=== PATIENT | male | born 1975 | race Caucasian/White ===

== ENCOUNTER 2021-10-19 06:54 | Inpatient (IN) | payer OTHER ==
[2021-10-06 14:16] VITALS: BMI 50.8
[~2021-10-19 06:54] MED LIST: VANCOMYCIN 1,000 MG VIAL (RESTRICTED TO ID ONLY) IVPB ONE
[2021-10-19] MEDS ORDERED: CELECOXIB 200 MG CAPSULE PO ONE (07:12)
[2021-10-19] MEDS ORDERED: DEXMEDETOMIDINE HCL 200 MCG/2 ML IVPB ONE (07:40)
[2021-10-19] MEDS ORDERED: MIDAZOLAM HCL 2 MG/2 ML SINGLE DOSE VIAL ONE ×6 (07:40→12:35)
[2021-10-19] MEDS ORDERED: BUPIVACAINE HCL/PF 0.5% (5MG/ML) 10 ML VIAL ONE (07:41)
[2021-10-19] MEDS ORDERED: ACETAMINOPHEN INJECTION 100 ML IVPB ONE ×2 (07:41→14:09)
[2021-10-19] MEDS ORDERED: BUPIVACAINE HCL/PF 0.5% (5 MG/ML) 30 ML VIAL IJ ONE (07:41)
[2021-10-19] MEDS ORDERED: PROPOFOL 20 ML ONE ×3 (07:59)
[2021-10-19] MEDS ORDERED: ceFAZolin SODIUM 1 GM VIAL ONE ×5 (07:59→23:39)
[2021-10-19] MEDS ORDERED: ONDANSETRON 4 MG/2 ML VIAL ONE (07:59)
[2021-10-19] MEDS ORDERED: LIDOCAINE HCL/PF 2% SDV 5ML VIAL ONE (07:59)
[2021-10-19] MEDS ORDERED: SUCCINYLCHOLINE CHLORIDE 200 MG/10 ML SYRINGE ONE (07:59)
[2021-10-19] MEDS ORDERED: VANCOMYCIN 1,000 MG VIAL (RESTRICTED TO ID ONLY) ONE (08:20)
[2021-10-19] MEDS ORDERED: CEFAZOLIN 3 GM in DEXTROSE 5%-WATER - 100 ML IVPB ONE (09:30)
[2021-10-19] MEDS ORDERED: KETAMINE HCL 200 MG/20 ML VIAL ONE (09:35)
[2021-10-19] MEDS ORDERED: TRANEXAMIC ACID 1000 MG/10 ML VIAL IVPUSH ONE (10:00)
[2021-10-19] MEDS ORDERED: LACTATED RINGERS SOLUTION 1,000 ML IV SCH ×2 (10:15→12:00)
[2021-10-19] MEDS ORDERED: ONDANSETRON 4 MG/2 ML VIAL IVPUSH PRN ×2 (10:15→11:58)
[2021-10-19] MEDS ORDERED: MAG HYDROX/AL HYDROX/SIMETH 30 ML UNIT-DOSE CUP PO PRN (10:15)
[2021-10-19] MEDS ORDERED: PHENYLEPHRINE HCL 10 MG/1 ML SINGLE DOSE VIAL ONE (11:40)
[2021-10-19] MEDS ORDERED: oxyCODONE HCL 5 MG TABLET PO PRN (11:58)
[2021-10-19] MEDS ORDERED: VANCOMYCIN 1,000 MG VIAL (RESTRICTED TO ID ONLY) IVPB ONE (12:33)
[2021-10-19] MEDS: oxyCODONE HCL 5 MG TABLET PO PRN ×2 (16:31→19:59)
[2021-10-19] MEDS ORDERED: DEXTROSE 5%-WATER - 100 ML IVPB ONE ×3 (17:55→23:39)
[2021-10-19] MEDS: CEFAZOLIN 3 GM in DEXTROSE 5%-WATER - 100 ML IVPB SCH (18:18)
[2021-10-19] MEDS: ACETAMINOPHEN 500 MG TABLET (FP) PO SCH ×2 (18:19→23:35)
[2021-10-19] MEDS: PANTOPRAZOLE 40 MG TABLET PO SCH (21:39)
[2021-10-19] MEDS: oxyCODONE HCL 10 MG SUSTAINED ACTING TABLET PO SCH (21:39)
[2021-10-19] MEDS: CARVEDILOL 12.5 MG TABLET (FP) PO SCH (21:39)
[2021-10-19] MEDS: SENNOSIDES/DOCUSATE COMBO (SENNA PLUS) TABLET (UD) PO SCH (21:39)
[2021-10-19] MEDS ORDERED: PATIENT'S OWN MEDICATION (NON-FORMULARY) (Omeprazole [Omeprazole] 20 MG Tab.Rap.Dr) PO SCH (22:00)
[2021-10-19] MEDS ORDERED: PATIENT'S OWN MEDICATION (NON-FORMULARY) (Lansoprazole [Prevacid] 30 MG Capsule.Dr) PO SCH (22:00)
[2021-10-19] MEDS ORDERED: HYDROmorphone HCl 2 MG/ML VIAL IVPB ONE (23:06)
[2021-10-19] MEDS ORDERED: KETOROLAC TROMETHAMINE 30 MG/1 ML VIAL IVPUSH ONE (23:07)
[2021-10-19] MEDS ORDERED: FAMOTIDINE 20 MG TABLET PO ONE (23:09)
[2021-10-20] MEDS: CEFAZOLIN 3 GM in DEXTROSE 5%-WATER - 100 ML IVPB SCH (01:23)
[2021-10-20] MEDS: ACETAMINOPHEN 500 MG TABLET (FP) PO SCH ×2 (06:01→11:58)
[2021-10-20] MEDS: oxyCODONE HCL 5 MG TABLET PO PRN ×4 (06:02→14:22)
[2021-10-20] MEDS ORDERED: ASPIRIN 325 MG TABLET PO SCH (08:00)
[2021-10-20] MEDS: oxyCODONE HCL 10 MG SUSTAINED ACTING TABLET PO SCH (09:12)
[2021-10-20] MEDS: SENNOSIDES/DOCUSATE COMBO (SENNA PLUS) TABLET (UD) PO SCH (09:13)
[2021-10-20] MEDS: CARVEDILOL 12.5 MG TABLET (FP) PO SCH (09:16)
[2021-10-20] MEDS: PANTOPRAZOLE 40 MG TABLET PO SCH (09:16)
[2021-10-20 09:26] LABS: HEMATOCRIT 44.5 % (35.4-49); HEMOGLOBIN 14.2 GM/dL (11.7-16.9); MEAN CELL VOLUME 78.2 fl (80-96); MEAN PLT VOLUME 8.3 fl (7.5-11.1); PLATELET COUNT 254 10^3/uL (134-434); RBC 5.69 M/mm3 (4.00-5.60); RDW 14.7 % (11.9-15.9); WHITE BLOOD COUNT 10.4 K/mm3 (4.0-10.0)
[2021-10-20] MEDS ORDERED: LOSARTAN POTASSIUM 50 MG TABLET PO SCH (10:00)
[2021-10-20] MEDS ORDERED: FUROSEMIDE 40 MG TABLET (FP) PO SCH (10:00)
[2021-10-20] MEDS ORDERED: MULTIVITAMINS (DAILY MVI) TABLET (FP) PO SCH (10:00)
[2021-10-20 14:03] VITALS: BP 109/57; PULSE 6; TEMP 99.3
== END 2021-10-20 14:58 | disposition home health service (06) | DRG 301 ==
LOC: FM/S 06:54
PROVIDERS: ADMIT Orthopaedic Surgery; ATTEND Orthopaedic Surgery
PROC: 8E0W0CZ Robotic Assisted Procedure of Trunk Region, Open Approach (ICD-10-PCS; 2021-10-19)
PROC: 0SR903A Replacement of Right Hip Joint with Ceramic Synthetic Substitute, Uncemented, Open Approach (ICD-10-PCS; principal; 2021-10-19 11:15)
DX: M16.11 Unilateral primary osteoarthritis, right hip (principal)
CPT/HCPCS: 36415; 73502-TC-RT-FY; 85027; 94760; 97010-GP; 97116-GP; 97163-GP

== ENCOUNTER 2021-11-23 08:51 | Inpatient (IN) | payer OTHER ==
[2021-11-23 09:06] VITALS: BMI 50.1
[2021-11-23] MEDS ORDERED: ACETAMINOPHEN 500 MG TABLET (FP) PO ONE (10:45)
[2021-11-23] MEDS ORDERED: MIDAZOLAM HCL 2 MG/2 ML SINGLE DOSE VIAL ONE ×2 (10:50→12:26)
[2021-11-23] MEDS ORDERED: BUPIVACAINE HCL 50 ML ONE (11:12)
[2021-11-23] MEDS ORDERED: VANCOMYCIN 1,000 MG VIAL (RESTRICTED TO ID ONLY) ONE ×2 (11:41→13:10)
[2021-11-23] MEDS ORDERED: ceFAZolin SODIUM 1 GM VIAL ONE ×3 (11:42→13:10)
[2021-11-23] MEDS ORDERED: TRANEXAMIC ACID 1000 MG/10 ML VIAL ONE (12:45)
[2021-11-23] MEDS ORDERED: PHENYLEPHRINE HCL 10 MG/1 ML SINGLE DOSE VIAL ONE (12:45)
[2021-11-23] MEDS ORDERED: PROPOFOL 20 ML ONE ×2 (12:46→13:02)
[2021-11-23] MEDS ORDERED: DEXAMETHASONE SOD PHOSPHATE 4 MG/1 ML VIAL ONE (13:01)
[2021-11-23] MEDS ORDERED: ONDANSETRON 4 MG/2 ML VIAL ONE (13:01)
[2021-11-23] MEDS ORDERED: oxyCODONE HCL 5 MG TABLET PO PRN ×2 (14:17)
[2021-11-23] MEDS ORDERED: ONDANSETRON 4 MG/2 ML VIAL IVPUSH PRN (14:17)
[2021-11-23] MEDS ORDERED: MAGNESIUM HYDROX 2400MG/30ML ORAL SUSPENSION 30 ML CUP PO PRN (14:18)
[2021-11-23] MEDS ORDERED: LACTATED RINGERS SOLUTION 1,000 ML IV SCH ×2 (14:30)
[2021-11-23] MEDS: KETOROLAC TROMETHAMINE 30 MG/1 ML VIAL IVPUSH SCH ×3 (14:43→20:08)
[2021-11-23] MEDS: ACETAMINOPHEN 1000 MG/100 ML BAG IVPB ONE ×2 (14:44→15:21)
[2021-11-23] MEDS: ACETAMINOPHEN 500 MG TABLET (FP) PO SCH ×2 (15:23→20:09)
[2021-11-23] MEDS ORDERED: oxyCODONE HCL 5 MG TABLET ONE ×2 (16:54)
[2021-11-23] MEDS: oxyCODONE HCL 5 MG TABLET PO PRN ×2 (17:00→21:40)
[2021-11-23] MEDS ORDERED: PIPERACILLIN/TAZOBACTAM 3.375 GM VIAL IVPB ONE ×2 (18:44→19:22)
[2021-11-23] MEDS ORDERED: DEXTROSE 5%-WATER - 50 ML IVPB ONE (18:44)
[2021-11-23] MEDS: PIPERACILLIN/TAZOB 3.375 GM 3.375 GM in DEXTROSE 5%-WATER - 50 ML IVPB SCH (19:23)
[2021-11-23] MEDS ORDERED: CEFAZOLIN 3 GM in DEXTROSE 5%-WATER - 100 ML IVPB SCH (20:00)
[2021-11-23] MEDS: SENNOSIDES/DOCUSATE COMBO (SENNA PLUS) TABLET (UD) PO SCH (21:36)
[2021-11-23] MEDS: CARVEDILOL 12.5 MG TABLET (FP) PO SCH (21:36)
[2021-11-23] MEDS ORDERED: PATIENT'S OWN MEDICATION (NON-FORMULARY) (Omeprazole [Omeprazole] 20 MG Tab.Rap.Dr) PO SCH (22:00)
[2021-11-23] MEDS ORDERED: PATIENT'S OWN MEDICATION (NON-FORMULARY) (Lansoprazole [Prevacid] 30 MG Capsule.Dr) PO SCH (22:00)
[2021-11-24] MEDS ORDERED: PIPERACILLIN/TAZOBACTAM 3.375 GM VIAL IVPB ONE ×3 (00:47→18:13)
[2021-11-24] MEDS ORDERED: DEXTROSE 5%-WATER - 50 ML IVPB ONE ×3 (00:47→18:13)
[2021-11-24] MEDS: PIPERACILLIN/TAZOB 3.375 GM 3.375 GM in DEXTROSE 5%-WATER - 50 ML IVPB SCH ×3 (01:35→18:23)
[2021-11-24] MEDS: ACETAMINOPHEN 500 MG TABLET (FP) PO SCH ×4 (01:39→21:12)
[2021-11-24] MEDS: oxyCODONE HCL 5 MG TABLET PO PRN ×4 (01:41→21:10)
[2021-11-24 08:42] LABS: ALBUMIN 3.4 g/dl (3.4-5.0); BILIRUBIN,TOTAL 0.6 mg/dl (0.2-1); CALCIUM 8.9 mg/dl (8.5-10); CREATININE 1.6 mg/dl (0.55-1.3); TOT PROT 6.8 g/dl (6.4-8.2); URIC ACID 7.2 mg/dl (2.6-7.2)
[2021-11-24 09:05] LABS: HEMATOCRIT 35.5 % (35.4-49); HEMOGLOBIN 11.7 GM/dL (11.7-16.9); MCH 25.2 pg (25.7-33.7); MCHC 33.1 g/dl (32.0-35.9); MEAN CELL VOLUME 76.2 fl (80-96); PLATELET COUNT 210 10^3/uL (134-434); RBC 4.66 M/mm3 (4.00-5.60); RDW 14.6 % (11.9-15.9); WHITE BLOOD COUNT 9.5 K/mm3 (4.0-10.0)
[2021-11-24 09:38] LABS: ERYTHROCYTE SEDIMENTATION RATE 78 mm/hr (0-10)
[2021-11-24] MEDS: LOSARTAN POTASSIUM 50 MG TABLET PO SCH (09:56)
[2021-11-24] MEDS: CARVEDILOL 12.5 MG TABLET (FP) PO SCH ×2 (09:56→21:11)
[2021-11-24] MEDS: PANTOPRAZOLE 40 MG TABLET PO SCH ×2 (09:57→21:13)
[2021-11-24] MEDS: MULTIVITAMINS (DAILY MVI) TABLET (FP) PO SCH (09:57)
[2021-11-24] MEDS: SENNOSIDES/DOCUSATE COMBO (SENNA PLUS) TABLET (UD) PO SCH ×3 (09:57→22:20)
[2021-11-24] MEDS ORDERED: ALLOPURINOL 300 MG TABLET (FP) PO SCH (10:00)
[2021-11-24] MEDS ORDERED: FUROSEMIDE 40 MG TABLET (FP) PO SCH (10:00)
[2021-11-24] MEDS ORDERED: SODIUM CHLORIDE 1,000 ML IV SCH (12:30)
[2021-11-24] MEDS: VANCOMYCIN 1 GRAM (PRE-DOCKED) 1,000 MG/250 ML BAG IVPB SCH (13:50)
[2021-11-24 18:17] LABS: EPI CELLS 2 /uL (0-25.1); HYALINE CASTS 1 /uL (0-3.1); URINE APPEARANCE CLEAR; URINE BACTERIA 2 /uL (0-1359); URINE BILIRUBIN NEGATIVE (NEGATIVE); URINE COLOR YELLOW; URINE GLUCOSE (UA) NEGATIVE (NEGATIVE); URINE KETONE NEGATIVE (NEGATIVE); URINE LEUK ESTERASE NEGATIVE (NEGATIVE); URINE NITRITE NEGATIVE (NEGATIVE); URINE PROTEIN 1+ (NEGATIVE); URINE RBC 7 /uL (0-23.9); URINE UROBILINOGEN 0.2 mg/dL (0.2-1.0); URINE WBC 6 /uL (0-25.8)
[2021-11-24] MEDS: ALLOPURINOL 100 MG TABLET (FP) PO SCH (21:11)
[2021-11-25] MEDS ORDERED: PIPERACILLIN/TAZOBACTAM 3.375 GM VIAL IVPB ONE ×3 (01:56→17:30)
[2021-11-25] MEDS ORDERED: DEXTROSE 5%-WATER - 50 ML IVPB ONE ×3 (01:56→17:30)
[2021-11-25] MEDS: PIPERACILLIN/TAZOB 3.375 GM 3.375 GM in DEXTROSE 5%-WATER - 50 ML IVPB SCH ×3 (01:58→17:33)
[2021-11-25] MEDS: ACETAMINOPHEN 500 MG TABLET (FP) PO SCH ×4 (06:29→19:41)
[2021-11-25] MEDS: oxyCODONE HCL 5 MG TABLET PO PRN ×3 (07:56→19:42)
[2021-11-25 08:22] LABS: ALBUMIN 3.2 g/dl (3.4-5.0); BILIRUBIN,TOTAL 0.6 mg/dl (0.2-1); CALCIUM 8.7 mg/dl (8.5-10); CREATININE 1.7 mg/dl (0.55-1.3); MAGNESIUM 1.8 mg/dL (1.8-2.4); PHOSPHOROUS 4.5 mg/dl (2.5-4.9); TOT PROT 6.3 g/dl (6.4-8.2); URIC ACID 6.7 mg/dl (2.6-7.2)
[2021-11-25 09:06] LABS: BASO % 0.7 % (0-2.0); EOS % 4.1 % (0-4.5); HEMATOCRIT 32.9 % (35.4-49); HEMOGLOBIN 10.9 GM/dL (11.7-16.9); LYMPH % 17.3 % (8-40); MCH 25.6 pg (25.7-33.7); MCHC 33.2 g/dl (32.0-35.9); MEAN CELL VOLUME 77.3 fl (80-96); MEAN PLT VOLUME 7.9 fl (7.5-11.1); MONO % 7.7 % (3.8-10.2); NEUT % 70.2 % (42.8-82.8); PLATELET COUNT 172 10^3/uL (134-434); RBC 4.25 M/mm3 (4.00-5.60); RDW 14.8 % (11.9-15.9); WHITE BLOOD COUNT 6.8 K/mm3 (4.0-10.0)
[2021-11-25] MEDS: PANTOPRAZOLE 40 MG TABLET PO SCH ×2 (09:58→21:22)
[2021-11-25] MEDS: MULTIVITAMINS (DAILY MVI) TABLET (FP) PO SCH (09:58)
[2021-11-25] MEDS: CARVEDILOL 12.5 MG TABLET (FP) PO SCH ×2 (09:58→21:22)
[2021-11-25] MEDS: LOSARTAN POTASSIUM 50 MG TABLET PO SCH (09:58)
[2021-11-25] MEDS: SENNOSIDES/DOCUSATE COMBO (SENNA PLUS) TABLET (UD) PO SCH ×2 (10:08→21:22)
[2021-11-25] MEDS ORDERED: SODIUM ZIRCONIUM CYCLOSILICATE (LOKELMA) 5 GM PACKET PO ONE (11:00)
[2021-11-25] MEDS: VANCOMYCIN 1 GRAM (PRE-DOCKED) 1,000 MG/250 ML BAG IVPB SCH (12:49)
[2021-11-25] MEDS: ALLOPURINOL 100 MG TABLET (FP) PO SCH (21:22)
[2021-11-26] MEDS ORDERED: PIPERACILLIN/TAZOBACTAM 3.375 GM VIAL IVPB ONE (00:44)
[2021-11-26] MEDS ORDERED: DEXTROSE 5%-WATER - 50 ML IVPB ONE (00:44)
[2021-11-26] MEDS: ACETAMINOPHEN 500 MG TABLET (FP) PO SCH ×2 (01:45→08:07)
[2021-11-26] MEDS: PIPERACILLIN/TAZOB 3.375 GM 3.375 GM in DEXTROSE 5%-WATER - 50 ML IVPB SCH ×2 (01:45→12:19)
[2021-11-26] MEDS: oxyCODONE HCL 5 MG TABLET PO PRN ×3 (01:53→11:59)
[2021-11-26 02:26] VITALS: TEMP 98
[2021-11-26 08:11] LABS: CALCIUM 8.6 mg/dl (8.5-10); CREATININE 1.5 mg/dl (0.55-1.3)
[2021-11-26] MEDS ORDERED: FUROSEMIDE 40 MG TABLET (FP) PO SCH (10:00)
[2021-11-26] MEDS: SENNOSIDES/DOCUSATE COMBO (SENNA PLUS) TABLET (UD) PO SCH (11:50)
[2021-11-26] MEDS: MULTIVITAMINS (DAILY MVI) TABLET (FP) PO SCH (11:50)
[2021-11-26] MEDS: PANTOPRAZOLE 40 MG TABLET PO SCH (11:50)
[2021-11-26] MEDS: LOSARTAN POTASSIUM 50 MG TABLET PO SCH (11:50)
[2021-11-26] MEDS: CARVEDILOL 12.5 MG TABLET (FP) PO SCH (11:50)
[2021-11-26] MEDS ORDERED: DAPTOMYCIN 1,000 MG in SODIUM CHLORIDE 50 ML IVPB SCH ×3 (12:45→13:30)
[2021-11-26 14:03] VITALS: BP 119/72; PULSE 102
== END 2021-11-26 16:20 | disposition home or self-care (01) | DRG 721 ==
LOC: FER 08:51 → FM/S 09:03 → FASUSAT 09:03 → FM/S 15:23 → FASUSAT 15:38 → FM/S 15:38 → UNDOADMIN 15:39 → FM/S 15:41 → UNDOADMIN 16:13 → FM/S 21:28
PROVIDERS: ADMIT Orthopaedic Surgery; ATTEND Orthopaedic Surgery
PROC: 3E10X8Z Irrigation of Skin and Mucous Membranes using Irrigating Substance (ICD-10-PCS; 2021-11-23)
PROC: 0J9L0ZX Drainage of Right Upper Leg Subcutaneous Tissue and Fascia, Open Approach, Diagnostic (ICD-10-PCS; principal; 2021-11-23 12:58)
PROC: 02HV33Z Insertion of Infusion Device into Superior Vena Cava, Percutaneous Approach (ICD-10-PCS; 2021-11-26)
PROC: B518ZZA Fluoroscopy of Superior Vena Cava, Guidance (ICD-10-PCS; 2021-11-26)
DX: T81.41XA Infection following a procedure, superficial incisional surgical site, initial encounter (principal); M10.9 Gout, unspecified; M54.50 Low back pain, unspecified; I12.9 Hypertensive chronic kidney disease with stage 1 through stage 4 chronic kidney disease, or unspecified chronic kidney disease; N18.9 Chronic kidney disease, unspecified; N17.9 Acute kidney failure, unspecified; E66.01 Morbid (severe) obesity due to excess calories; Z68.43 Body mass index [BMI] 50.0-59.9, adult; M25.551 Pain in right hip; K21.9 Gastro-esophageal reflux disease without esophagitis; B95.61 Methicillin susceptible Staphylococcus aureus infection as the cause of diseases classified elsewhere; E87.5 Hyperkalemia; M19.90 Unspecified osteoarthritis, unspecified site; R80.9 Proteinuria, unspecified; Z96.641 Presence of right artificial hip joint; Y83.8 Other surgical procedures as the cause of abnormal reaction of the patient, or of later complication, without mention of misadventure at the time of the procedure
CPT/HCPCS: 36415; 36558; 80048; 80053; 81003; 82550; 82570; 83735; 84100; 84156; 84300; 84550; 85025; 85027; 85651; 86140; 87040; 87070; 87102; 87116; 87186; 87205; 87206; 87210; 94760; 97010-GP; 97116-GP; 97161-GP; 99285-25; G0480; J0878

== ENCOUNTER → 2022-01-07 | Day surgery (SDC) | payer BC, OTHER ==
[2022-01-07 13:43] LABS: BLOOD UREA NITROGEN 24.7 mg/dL (7-18); CALCIUM 9.1 mg/dL (8.5-10.1)
[2022-01-07 13:46] LABS: CREATININE 1.9 mg/dL (0.55-1.3)
== END | disposition home or self-care (01) ==
LOC: JRADIR 09:42
PROVIDERS: ATTEND Internal Medicine
PROC: 05PYX3Z Removal of Infusion Device from Upper Vein, External Approach (ICD-10-PCS; principal; 2022-01-07)
DX: Z45.2 Encounter for adjustment and management of vascular access device (principal)
CPT/HCPCS: 36415; 36589; 80048